=== PATIENT | male | born 1975 | race Caucasian/White ===

== ENCOUNTER 2023-01-25 19:34 | Emergency (ER) | payer SELFPAY ==
[2023-01-25 20:41] LABS: SARS-CoV-2 NAA Rapid Test Not Detected (NotDetected)
== END 2023-01-25 21:21 | disposition home or self-care (01) ==
LOC: CSHERS 19:34
DX: J18.9 Pneumonia, unspecified organism (principal); F17.210 Nicotine dependence, cigarettes, uncomplicated; Z20.822 Contact with and (suspected) exposure to COVID-19
CPT/HCPCS: 71045; 93005